=== PATIENT | female | born 1950 | race Caucasian/White ===

== ENCOUNTER 2021-11-07 13:21 | Emergency (ER) | payer MEDICARE, SELFPAY ==
[2021-11-07 13:41] VITALS: BP 123/76; PULSE 74; RESP 18; TEMP 35.6; O2SAT 98; BMI 22.1
--- NOTE | 2021-11-07 14:08 | CRLHL7_ITS ---
For Patients: As a result of the Century Cures Act, medical imaging exams and procedure reports are released immediately into your electronic medical record. You may view this report before your referring provider. If you have questions, please contact your health care provider. INDICATION: Pain COMPARISON: None TECHNIQUE: : CT examination of the chest was performed with the uneventful intravenous administration of 95 cc of Isovue 370 while thin axial sections were obtained from above the apices of the lungs to the lung bases. Please note that all CT scans at this facility use dose modulation, iterative reconstruction, and/or weight-based dosing when appropriate to reduce radiation dose to as low as reasonably achievable. FINDINGS: : HEART and MEDIASTINUM: Heart size normal. No mediastinal or hilar adenopathy or mass. No pericardial effusion. Atherosclerotic vascular calcifications PULMONARY ARTERIAL CIRCULATION: There is no visible intraluminal filling defect to suggest pulmonary embolus. LUNGS: Multiple nodules most of which are ground-glass nodules without solid components. These range in size up to about 8 millimeters. There are few small solid nodules the 1-3 millimeter range. Minimal basilar atelectasis. No focal consolidation. PLEURAL SPACES: There is no pleural effusion, pneumothorax or pleural based mass. VISUALIZED UPPER ABDOMEN: The limited visualized upper abdominal structures appear normal. OSSEOUS STRUCTURES: Age-appropriate appearance. No acute fracture or destructive process. TUBES and LINES: None. IMPRESSION: 1. There is no indication pulmonary embolus. While not timed for the systemic circulation, there is no visible aortic dissection. 2. Multiple bilateral nodules most of which are ground-glass nodules without solid components. There is some solid nodules in the 1-3 millimeter range. These are unlikely to be the cause of the patient`s pain but warrant follow-up. A follow-up noncontrast chest CT is recommended in 6 months. No focal consolidation. No pleural effusion or pneumothorax. Please note that all CT scans at this facility use dose modulation, iterative reconstruction, and/or weight-based dosing when appropriate to reduce radiation dose to as low as reasonably achievable. Dictated by Ryan Goldstein MD @ 11/07/2021 3:43:52 PM (Electronically Signed)
--- NOTE | 2021-11-07 14:11 | ED_ITS ---
HPI - General Adult General Time Seen by Provider: 14:11 Date Seen: 11/07/21 Chief complaint: Chest Pain Stated complaint: From [facility] Time Seen by Provider: 11/07/21 13:25 Source: patient Mode of arrival: ambulatory Limitations: no limitations History of Present Illness HPI narrative: Patient is a 71-year-old female who for 2 days is had some epigastric discomfort that radiates up to her chest to her throat area radiates a little bit into her back. She notices this primarily with eating or after eating. She has had no fever, no vomiting. She does notice in her upper epigastric area subxiphoid area she has significant tenderness to palpation. She has been on a osteoporosis medicine that can cause reflux she had reflux in the past but stopped it due to changing her diet to a vegan diet. She denies anterior chest pain, she denies shortness of breath, she denies fevers, chills, diaphoresis. She feels occasionally nauseated after she eats. No other specific complaints. No leg swelling edema, no fevers as mention, no weight loss Related Data Home Medications Medication Instructions Recorded Confirmed ibandronate 150 mg tablet ea PO 11/07/21 11/07/21 lisinopril 20 mg tablet 20 mg PO QDAY tab 11/07/21 11/07/21 simvastatin 20 mg tablet 20 mg PO QDAY tab 11/07/21 11/07/21 Allergies Allergy/AdvReac Type Severity Reaction Status Date / Time Penicillins Allergy Mild Rash Verified 11/07/21 12:36 Review of Systems Status of ROS: Reports: 10 or more systems reviewed and unremarkable except as noted in History and below PFSH PFS Social History Smoking Status: Never smoker Do you use any of these nicotine containing products: None How often do you have a drink containing alcohol: 2-4 times a month AUDIT-C Alcohol total score: 2 Non-prescribed substance use: denies use Exam Narrative: Exam Narrative: Objective: In general patient is no apparent distress, noncyanotic, alert orient x3 Vital signs unremarkable HEENT is unremarkable no scleral icterus Neck is supple Chest is clear no rales or wheezing Heart rate and rhythm regular without murmur Abdomen benign soft mild subxiphoid tenderness to palpation, no mass, no rebound bowel sounds normoactive Skin exam is unremarkable. Back exam is unremarkable Const: Vital Signs, click to edit/add: Vital Signs - 24 hr 11/07/21 13:41 Temperature 96.1 F L Pulse Rate [Right Pulse Oximeter] 74 Respiratory Rate 18 Blood Pressure [Ri ght Upper Arm] 123/76 Pulse Oximetry 98 Course Vital Signs Vital signs: Initial Vital Signs Temperature 96.1 F L 11/07/21 13:41 Temperature Source Temporal Artery Scan 11/07/21 13:41 Pulse Rate 74 11/07/21 13:41 Respiratory Rate 18 11/07/21 13:41 Blood Pressure 123/76 11/07/21 13:41 Blood Pressure Mean 91 11/07/21 13:41 Blood Pressure Position Sitting 11/07/21 13:41 Pulse Oximetry 98 11/07/21 13:41 Oxygen Delivery Method 11/07/21 13:41 Vital Signs Temperature 96.1 F L 11/07/21 13:41 Pulse Rate 74 11/07/21 13:41 Respiratory Rate 18 11/07/21 13:41 Blood Pressure 123/76 11/07/21 13:41 Pulse Oximetry 98 11/07/21 13:41 Temperature 96.1 F L 11/07/21 13:41 Pulse Rate 74 11/07/21 13:41 Respiratory Rate 18 11/07/21 13:41 Blood Pressure 123/76 11/07/21 13:41 Pulse Oximetry 98 11/07/21 13:41 Medical Decision Making MDM Narrative Medical decision making narrative: The patient has is 2 day history of postprandial pain, subxiphoid pain to palpation, pain radiates somewhat through to her back. Differential be broad including acute coronary syndrome, aortic dissection, peptic ulcer disease, biliary colic. Patient will get the above-mentioned studies I think if we do lab studies and IV fluids and acid suppression medication, that would be ceased a start in the ED. Will give her a GI cocktail. Will look at her laboratory studies and will do a CT scan of the chest for completeness because of her location of pain in the fact that radiates the back. Addendum: Patient's CT of the chest shows no dissection and no PE, there are multiple multiple pulmonary nodules that will need follow-up in 6-[address] scan[address] Jasmin Mcneill is her doctor in in [place], and she will follow up with her in the next 4-5 days. Patient's lab study looks reassuring her EKG by my read shows normal sinus rhythm no acute ST T wave changes. The patient had a GI cocktail incompletely relieve her symptoms, she is given IV Protonix as well. Given her history of reflux her tenderness to palpation or subxiphoid notch. I think she might have esophageal spasm or reflux symptoms occurring, and would recommend Prilosec 20 mg a day for the next couple of weeks, follow-up Ms. Mcneill in the next 4-5 days, return to ED problems or concerns. Her symptoms are completely resolved as mention. Lab Data Labs: Lab Results 11/07/21 11/07/21 11/07/21 Range/Units 14:09 14:15 14:15 WBC 6.72 (4.50-11.00) K/uL RBC 4.20 (4.00-5.20) m/uL Hgb 13.3 (12.0-16.0) gm/dL Hct 38.4 (33.0-51.0) % MCV 91 (80-100) fL MCH 32 (26-34) pg MCHC 35 (32-36) gm/dL RDW Coeff of Graham 11.7 (11.5-15.5) % Plt Count 278 (140-440) K/uL Neut % (Auto) 65.1 (42.0-72.0) % Lymph % (Auto) 20.5 (20-44) % [place] % (Auto) 11.5 H (0.0-11.0) % Eos % (Auto) 2.2 (0.0-7.0) % Baso % (Auto) 0.7 (0.0-3.0) % Neut # (Auto) 4.37 (1.7-7.0) K/uL Lymph # (Auto) 1.38 (0.90-2.90) K/uL [place] # (Auto) 0.80 (0.00-0.90) K/UL Eos # (Auto) 0.15 (0.00-0.50) K/uL Baso # (Auto) 0.05 (0.00-0.30) K/uL Abs Immat Gran (auto) 0.00 (0.00-0.30) K/uL INR 0.97 (0.91-1.10) APTT 33 (23-33) Seconds Sodium (135-149) mmol/L Potassium (3.6-5.1) mmol/L Chloride (96-114) mmol/L Carbon Dioxide (20-32) mmol/L BUN (7-30) mg/dL Creatinine (0.5-1.5) mg/dL Estimated Creat Clear Estimated GFR ml/min Glucose (60-115) mg/dL Calcium (8.4-10.6) mg/dL Total Bilirubin (0.1-1.5) mg/dL Direct Bilirubin (0.0-0.5) mg/dL AST (12-35) U/L ALT (4-35) U/L Alkaline Phosphatase (40-150) U/L C-Reactive Protein (0.5-1.0) mg/dL NT-Pro-B Natriuret Pep (0-125) PG/mL Total Protein (6.0-8.3) g/dL Albumin (3.3-5.0) g/dL Amylase (18-89) U/L POC Troponin I 0.01 (0.01-0.04) ng/ml 11/07/21 11/07/21 Range/Units 14:15 14:15 WBC (4.50-11.00) K/uL RBC (4.00-5.20) m/uL Hgb (12.0-16.0) gm/dL Hct (33.0-51.0) % MCV (80-100) fL MCH (26-34) pg MCHC (32-36) gm/dL RDW Coeff of Graham (11.5-15.5) % Plt Count (140-440) K/uL Neut % (Auto) (42.0-72.0) % Lymph % (Auto) (20-44) % [place] % (Auto) (0.0-11.0) % Eos % (Auto) (0.0-7.0) % Baso % (Auto) (0.0-3.0) % Neut # (Auto) (1.7-7.0) K/uL Lymph # (Auto) (0.90-2.90) K/uL [place] # (Auto) (0.00-0.90) K/UL Eos # (Auto) (0.00-0.50) K/uL Baso # (Auto) (0.00-0.30) K/uL Abs Immat Gran (auto) (0.00-0.30) K/uL INR (0.91-1.10) APTT (23-33) Seconds Sodium 138 (135-149) mmol/L Potassium 4.1 (3.6-5.1) mmol/L Chloride 105 (96-114) mmol/L Carbon Dioxide 26 (20-32) mmol/L BUN 22 (7-30) mg/dL Creatinine 1.3 (0.5-1.5) mg/dL Estimated Creat Clear 31.88 Estimated GFR 43 ml/min Glucose 97 (60-115) mg/dL Calcium 9.5 (8.4-10.6) mg/dL Total Bilirubin 0.5 (0.1-1.5) mg/dL Direct Bilirubin 0.2 (0.0-0.5) mg/dL AST 26 (12-35) U/L ALT 17 (4-35) U/L Alkaline Phosphatase 65 (40-150) U/L C-Reactive Protein < 0.5 L (0.5-1.0) mg/dL NT-Pro-B Natriuret Pep 87 (0-125) PG/mL Total Protein 7.5 (6.0-8.3) g/dL Albumin 4.6 (3.3-5.0) g/dL Amylase 129 H (18-89) U/L POC Troponin I (0.01-0.04) ng/ml Discharge Plan Discharge Clinical Impression: Abdominal pain, Chest pain, Multiple pulmonary nodules Patient Disposition: Home w/ Parent or Adult Condition: Improved Additional Instructions: Light activity, light diet, Prilosec 20 mg daily for the next 2 weeks, follow-up with Ms. Mcneill in the next 3-5 days, avoid aspirin or Advil. Elevate head of bed, no food for 2-3 hours before bedtime. Return to ED as needed. Recommend follow-up pulmonary nodules in the next 6-[address] scanning Activity Level: Light activity Discharge Diet: Low Fat/Low Cholesterol Prescriptions: No Action simvastatin 20 mg tablet 20 mg PO QDAY 0RF lisinopril 20 mg tablet 20 mg PO QDAY 0RF ibandronate 150 mg tablet PO 0RF Label Comments: TAKE 1 TABLET BY MOUTH ONCE EVERY 30 DAYS. Follow Up/Referrals: Josh Mcneill PA-C [Primary Care Provider] - Stand Alone Forms: [email or web address] Info Instructions
[2021-11-07 14:24] LABS: Basophils Absolute Auto 0.05 K/uL (0.00-0.30); Basophils Percent Auto 0.7 % (0.0-3.0); Eosinophils Absolute Auto 0.15 K/uL (0.00-0.50); Eosinophils Percent Auto 2.2 % (0.0-7.0); Hematocrit 38.4 % (33.0-51.0); Hemoglobin* 13.3 gm/dL (12.0-16.0); Lymphocytes Absolute Auto 1.38 K/uL (0.90-2.90); Lymphocytes Percent Auto 20.5 % (20-44); Mean Corpuscular HGB Conc 35 gm/dL (32-36); Mean Corpuscular Hemoglobin 32 pg (26-34); Mean Corpuscular Volume 91 fL (80-100); Monocytes Percent Auto 11.5 % (0.0-11.0); Neutrophils Absolute Auto 4.37 K/uL (1.7-7.0); Neutrophils Percent Auto 65.1 % (42.0-72.0); Platelet Count* 278 K/uL (140-440); RDW Coefficient of Variation % 11.7 % (11.5-15.5); White Blood Count* 6.72 K/uL (4.50-11.00)
[2021-11-07 14:30] VITALS: BP 107/60; PULSE 68; RESP 18; O2SAT 98
[2021-11-07 14:35] LABS: Troponin, Point-of-Care* 0.01 ng/ml (0.01-0.04)
[2021-11-07 14:39] LABS: INR 0.97 (0.91-1.10); Prothrombin Time 13.3 Seconds
[2021-11-07 14:40] LABS: Partial Thromboplastin Time* 33 Seconds (23-33)
[2021-11-07 14:42] LABS: Slide Review Reflex No
[2021-11-07 14:43] LABS: Albumin* 4.6 g/dL (3.3-5.0); Chloride* 105 mmol/L (96-114)
[2021-11-07 14:44] LABS: Potassium* 4.1 mmol/L (3.6-5.1); Sodium* 138 mmol/L (135-149)
[2021-11-07 14:45] LABS: Amylase* 129 U/L (18-89)
[2021-11-07 14:46] LABS: Creatinine* 1.3 mg/dL (0.5-1.5); Est. Creatinine Clearance* 31.88; Estimated Glomerular Filt Rate 43 ml/min
[2021-11-07 14:47] LABS: Alanine Aminotransferase* 17 U/L (4-35); Alkaline Phosphatase* 65 U/L (40-150); Aspartate Amino Transferase* 26 U/L (12-35); Bilirubin Direct* 0.2 mg/dL (0.0-0.5); Bilirubin Total* 0.5 mg/dL (0.1-1.5); Blood Urea Nitrogen* 22 mg/dL (7-30); Calcium* 9.5 mg/dL (8.4-10.6); Carbon Dioxide* 26 mmol/L (20-32); Glucose* 97 mg/dL (60-115); Total Protein* 7.5 g/dL (6.0-8.3)
[2021-11-07 14:51] LABS: C Reactive Protein* < 0.5 mg/dL (0.5-1.0)
[2021-11-07 14:54] LABS: NT Pro B Type NatriureticPept* 87 PG/mL (0-125)
[2021-11-07] MEDS: PANTOPRAZOLE SODIUM 40 MG INJ IVP (14:56)
[2021-11-07] MEDS: 0.9 % SODIUM CHLORIDE 500 ML 500 ML IV (14:56)
[2021-11-07] MEDS: GI COCKTAIL (VISC LIDO/ANTACID) 30 ML PO (14:56)
--- NOTE | 2021-11-07 15:14 | ED.NURSE ---
good relief from GI cocktail
[2021-11-07 15:30] VITALS: BP 180/87; PULSE 65; RESP 18; O2SAT 99
== END 2021-11-07 16:23 | disposition home or self-care (01) ==
PROVIDERS: Emergency Provider Family Medicine; PCP Physician Assistant Medical
DX: R10.13 Epigastric pain (principal); R07.9 Chest pain, unspecified; R91.1 Solitary pulmonary nodule
CPT/HCPCS: 36415; 71260; 80048; 80076; 82150; 83880; 84484; 85025; 85610; 85730; 86140; 93005; 96374; 99285; A9270; C9113; J7120; Q9967

== ENCOUNTER 2021-11-27 11:18 | Outpatient (CLI) | payer MEDICARE, SELFPAY ==
[2021-11-27 13:36] LABS: Cholesterol* 159 mg/dL (90-199)
[2021-11-27 13:37] LABS: HDL Cholesterol* 59 mg/dL (>=50); LDL Cholesterol Calculated 77 mg/dL (<100); Triglycerides* 117 mg/dL (40-149)
== END 2021-11-27 11:19 | disposition home or self-care (01) ==
PROVIDERS: PCP Physician Assistant Medical; Visit Provider Family Medicine
DX: Z00.00 Encounter for general adult medical examination without abnormal findings (principal); E78.5 Hyperlipidemia, unspecified; I10 Essential (primary) hypertension
CPT/HCPCS: 80061

== ENCOUNTER 2021-12-11 14:39 | Outpatient (CLI) | payer MEDICARE, SELFPAY ==
--- NOTE | 2021-12-11 15:00 | CRLHL7_ITS ---
For Patients: As a result of the Century Cures Act, medical imaging exams and procedure reports are released immediately into your electronic medical record. You may view this report before your referring provider. If you have questions, please contact your health care provider. BILATERAL SCREENING MAMMOGRAM WITH COMPUTER-AIDED DETECTION TECHNIQUE: CC and MLO views were obtained. These mammographic images have been obtained using full-field digital technique. These mammographic images were interpreted with the benefit of computer-aided detection. COMPARISON FILM: 08/31/20; 02/25/19; 12/10/17 FINDINGS: The breasts are heterogeneously dense, which may obscure small masses IMPRESSION: There is no radiographic evidence for malignancy. ASSESSMENT: BI-RADS Category 2: Benign RECOMMENDATION: Routine screening mammogram in 1 year. A lay language report of this examination will be provided to the patient. Johan Augustin M.D. Diagnostic/Musculoskeletal Radiologist [email or web address] Transcribed: 2:53 p.m. PT/Dictated by: Johan Augustin MD @ 12/12/2021 9:36:00 AM (Electronically Signed)
== END 2021-12-11 14:40 | disposition home or self-care (01) ==
LOC: MAMMO 14:41
PROVIDERS: PCP Physician Assistant Medical; Visit Provider Family Medicine
DX: Z12.31 Encounter for screening mammogram for malignant neoplasm of breast (principal)
CPT/HCPCS: 77063; 77067

== ENCOUNTER 2022-12-06 08:00 | Outpatient (CLI) | payer MEDICARE, SELFPAY | END 2022-12-06 08:01 | disposition home or self-care (01) | LOC: NFLDREF 12-09 08:50 | PROVIDERS: PCP Physician Assistant Medical; Referring Provider Physician Assistant Medical; Visit Provider Family Medicine | DX: Z00.00 Encounter for general adult medical examination without abnormal findings (principal); E78.5 Hyperlipidemia, unspecified; I10 Essential (primary) hypertension; Z12.39 Encounter for other screening for malignant neoplasm of breast | CPT/HCPCS: 80053; 80061; 82043; 82570 ==

== ENCOUNTER 2022-12-17 07:11 | Outpatient (CLI) | payer MEDICARE, SELFPAY ==
--- NOTE | 2022-12-17 09:57 | W.ANESCHARGE ---
Anesthesia Charges Start Date/Time Anesthesia Start Date: 12/17/22 Anesthesia Start Time: 10:47 Stop Date/Time Anesthesia Stop Date: 12/17/22 Anesthesia Stop Time: 11:19 Summary Extremes of Age - Over 70 or under 1: MDA
--- NOTE | 2022-12-17 11:20 | P.ANES_ITS ---
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
== END 2022-12-17 07:12 | disposition home or self-care (01) ==
PROVIDERS: PCP Family Medicine; Visit Provider Surgery
DX: Z12.11 Encounter for screening for malignant neoplasm of colon (principal); Z86.010 Personal history of colon polyps
CPT/HCPCS: G0105; 00811; 00812; 99100; J2704

== ENCOUNTER 2023-01-07 08:30 | Outpatient (CLI) | payer MEDICARE, SELFPAY | END 2023-01-07 08:31 | disposition home or self-care (01) | LOC: NFLDREF 01-08 08:39 | PROVIDERS: PCP Family Medicine; Referring Provider Family Medicine; Visit Provider Family Medicine | DX: R59.1 Generalized enlarged lymph nodes (principal); I10 Essential (primary) hypertension | CPT/HCPCS: 80069 ==

== ENCOUNTER 2023-01-20 14:08 | Outpatient (CLI) | payer MEDICARE, SELFPAY ==
--- NOTE | 2023-01-20 14:00 | CRLHL7_ITS ---
For Patients: As a result of the Century Cures Act, medical imaging exams and procedure reports are released immediately into your electronic medical record. You may view this report before your referring provider. If you have questions, please contact your health care provider. BILATERAL SCREENING MAMMOGRAM WITH COMPUTER-AIDED DETECTION TECHNIQUE: CC and MLO views were obtained. These mammographic images have been obtained using full-field digital technique. These mammographic images were interpreted with the benefit of computer-aided detection. COMPARISON FILM: 12/11/21, 08/31/20, 02/15/19. FINDINGS: The breasts are heterogeneously dense, which may obscure small masses IMPRESSION: There is no radiographic evidence for malignancy. ASSESSMENT: BI-RADS Category 2: Benign RECOMMENDATION: Routine screening mammogram in 1 year. A lay language report of this examination will be provided to the patient. Victor Manuel Chacko M.D. Diagnostic Radiologist [email or web address] JAYJAY/Dictated by: Victor Manuel Chacko MD @ 01/21/2023 12:13:00 PM (Electronically Signed)
== END 2023-01-20 14:09 | disposition home or self-care (01) ==
LOC: MAMMO 14:10
PROVIDERS: PCP Family Medicine; Visit Provider Family Medicine
DX: Z12.31 Encounter for screening mammogram for malignant neoplasm of breast (principal); R92.2 Inconclusive mammogram
CPT/HCPCS: 77067

== ENCOUNTER 2024-01-22 13:44 | Outpatient (CLI) | payer MEDICARE, SELFPAY ==
--- NOTE | 2024-01-22 14:00 | CRLHL7_ITS ---
For Patients: As a result of the Century Cures Act, medical imaging exams and procedure reports are released immediately into your electronic medical record. You may view this report before your referring provider. If you have questions, please contact your health care provider. DXA BONE MINERAL DENSITY STUDY Current height (in): 64.0. Weight (lb): 127.0. Menopause age: 46. Ethnicity: White. 1. Have you had a previous hip or vertebral fracture? No. 2. Have you had any fractures during your adult life which did not result from significant trauma (e.g., auto accident)? No. 3. Did either of your parents have a hip fracture? No. 4. Do you smoke? No. 5. Have you ever taken Glucocorticoids? No. 6. Do you have rheumatoid arthritis? No. 7. Do you have secondary osteoporosis? No. 8. Do you drink 3 or more alcoholic drinks per day? No. 9. Are you being treated for osteoporosis? Yes. 10. Have you ever taken any of the following medications: Actonel, Evista, Fosamax, Miacalcin, Reclast, Boniva, Forteo, HRT (i.e. estrogen/hormone therapy), Protelos, Prolia, Vitamin D, Calcium, other ??? please specify. ANSWER: Yes, Vitamin D, Calcium. 11. Do you have any of the following medical conditions: Anorexia or bulimia, asthma or emphysema, end stage renal disease, hyperparathyroidism, any seizure disorders, cancer, inflammatory bowel diseases, hysterectomy, other ??? please specify. ANSWER: No. 12. What was your maximum height (inches)? 65. 13. Do you perform weight bearing exercise regularly? No. 14. Do you regularly consume dairy products? Yes. 15. Do you drink caffeinated beverages? No. If female: 16. At what age did your period start? 11. 17. Are you premenopausal? No. 18. How many full term pregnancies have you had? 2. 19. Have you ever missed your period for more than 6 months in a row (not including or menopause)? Not provided. TECHNIQUE: Bone mineral density study was performed using the [facility]. FINDINGS: The results of the study expressed as bone mineral density (BMD) are as follows: Lumbar spine L1 to L4: BMD: 0.827 g/cm2. T-score: -2.0. Z-score: 0.4. Neck Left: BMD: 0.612 g/cm2. T-score: -2.1 . Z-score: -0.0. Right: BMD: 0.657 g/cm2. T-score: -1.7 . Z-score: 0.4. Total Left: BMD: 0.759 g/cm2. T-score: -1.5 . Z-score:0.3. Right: BMD:0.793 g/cm2. T-score: -1.2 . Z-score: 0.6. IMPRESSION: Osteopenia. *Comparison exams done prior to 09/2019 were performed on different unit, [employer]. COMPARISON: Compared with scan of 02/21/2021, the bone mineral density has increased by 14.6 percent at the spine and increased by 2.3 percent at the hip. Compared with scan of 02/15/2019, the bone mineral density has decreased by 7.7 percent at the spine and increased by 4.2 percent at the hip. Victor Manuel Chacko M.D. Diagnostic Radiologist [email or web address] [email or web address]/[email or web address] JR/Dictated by: Victor Manuel Chacko MD @ 01/23/2024 10:10:00 AM (Electronically Signed)
--- NOTE | 2024-01-22 14:40 | CRLHL7_ITS ---
For Patients: As a result of the Century Cures Act, medical imaging exams and procedure reports are released immediately into your electronic medical record. You may view this report before your referring provider. If you have questions, please contact your health care provider. BILATERAL SCREENING MAMMOGRAM WITH COMPUTER-AIDED DETECTION AND TOMOSYNTHESIS TECHNIQUE: CC and MLO views were obtained. These mammographic images have been obtained using full-field digital technique. These mammographic images were interpreted with the benefit of computer-aided detection. Breast Tomosynthesis was used in this interpretation. COMPARISON FILM: 01/20/23, 12/11/21, 08/31/20. FINDINGS: There are scattered areas of fibroglandular density. IMPRESSION: There is no radiographic evidence for malignancy. ASSESSMENT: BI-RADS Category 2: Benign RECOMMENDATION: Routine screening mammogram in 1 year. A lay language report of this examination will be provided to the patient. Victor Manuel Chacko M.D. Diagnostic Radiologist [email or web address] SP/Dictated by: Victor Manuel Chacko MD @ 01/23/2024 9:06:00 AM (Electronically Signed)
== END 2024-01-22 13:45 | disposition home or self-care (01) ==
PROVIDERS: Visit Provider Physician Assistant Medical
DX: Z12.31 Encounter for screening mammogram for malignant neoplasm of breast (principal); M81.0 Age-related osteoporosis without current pathological fracture; M85.89 Other specified disorders of bone density and structure, multiple sites
CPT/HCPCS: 77063; 77067; 77080

== ENCOUNTER 2024-01-26 14:40 | Outpatient (CLI) | payer MEDICARE, SELFPAY | END 2024-01-26 14:41 | disposition home or self-care (01) | PROVIDERS: PCP Physician Assistant Medical; Visit Provider Physician Assistant Medical | DX: I10 Essential (primary) hypertension (principal); E78.5 Hyperlipidemia, unspecified; D64.9 Anemia, unspecified | CPT/HCPCS: 80053; 80061; 84443 ==

== ENCOUNTER 2024-03-02 12:20 | Outpatient (CLI) | payer MEDICARE, SELFPAY | END 2024-03-02 12:21 | disposition home or self-care (01) | LOC: NFLDREF 03-06 03:10 | PROVIDERS: PCP Physician Assistant Medical; Referring Provider Physician Assistant Medical; Visit Provider Internal Medicine Nephrology | DX: N18.30 Chronic kidney disease, stage 3 unspecified (principal) | CPT/HCPCS: 82043; 82570; 87086 ==

== ENCOUNTER 2024-03-09 10:59 | Emergency (ER) | payer MEDICARE, SELFPAY ==
[2024-03-09 11:10] VITALS: BP 172/80; PULSE 78; RESP 20; TEMP 36.6; O2SAT 98; BMI 20.5
--- NOTE | 2024-03-09 11:24 | CRLHL7_ITS ---
For Patients: As a result of the Cures Act, medical imaging exams and procedure reports are released immediately into your electronic medical record. You may view this report before your referring provider. If you have questions, please contact your health care provider. INDICATION: Fall. COMPARISON: None available. TECHNIQUE: Three views of the right wrist. FINDINGS: Impacted fracture of the distal right radius with comminution, intra-articular extension and mild dorsal angulation. Associated soft tissue swelling about the wrist extending to the dorsal aspect of the metacarpals. IMPRESSION: Distal radial fracture as above. Dictated by Carlos Marquez MD @ 03/09/2024 12:17:19 PM (Electronically Signed)
--- NOTE | 2024-03-09 11:24 | CRLHL7_ITS ---
For Patients: As a result of the Cures Act, medical imaging exams and procedure reports are released immediately into your electronic medical record. You may view this report before your referring provider. If you have questions, please contact your health care provider. INDICATION: Fall. COMPARISON: None available. TECHNIQUE: Three views left knee. FINDINGS: Normal mineralization alignment. Patella Judit. No fracture is identified. Medial periarticular soft tissue swelling is suspected on the AP view. Correlation with clinical exam findings is recommended. No joint effusion. IMPRESSION: Suspected medial periarticular soft tissue swelling. No significant joint effusion or fracture. Dictated by Carlos Marquez MD @ 03/09/2024 12:21:08 PM (Electronically Signed)
--- NOTE | 2024-03-09 11:25 | CRLHL7_ITS ---
For Patients: As a result of the Cures Act, medical imaging exams and procedure reports are released immediately into your electronic medical record. You may view this report before your referring provider. If you have questions, please contact your health care provider. INDICATION: Fall. COMPARISON: None available. TECHNIQUE: Three views right hand FINDINGS: Impacted fracture of the distal right radius with comminution, intra-articular extension and mild dorsal angulation. Associated soft tissue swelling about the wrist extending to the dorsal aspect of the metacarpals. No other injury is identified. IMPRESSION: Distal right radial fracture as above. Dictated by Carlos Marquez MD @ 03/09/2024 12:18:37 PM (Electronically Signed)
--- NOTE | 2024-03-09 11:33 | ED_ITS ---
HPI - General Adult General Date Seen: 03/09/24 Chief complaint: Fall/Minor Trauma Stated complaint: Fall. Facial, wrist, knee injuries Time Seen by Provider: 03/09/24 11:05 Source: patient Mode of arrival: ambulatory Limitations: no limitations History of Present Illness HPI narrative: Patient is a 73-year-old woman here with her . They were out walking earlier this morning when she tripped and fell. She scraped her left knee, she does not have a lot of pain there but says it makes a little bit of a clicking sound when she bends it now. She is ambulatory without difficulty. Primary concern is pain in her right wrist and bruising and swelling of her right hand although she says she does not have a lot of pain in the hand. She also hit her right forehead on the ground, she has little bit of scrapes and bruising lateral to the right eye. She denies loss of consciousness. She is not anticoagulated. Denies neck pain, visual changes or facial pain. Related Data Home Medications ?Medication ?Instructions ?Recorded ?Confirmed calcium 200 mg (as 1 tab PO DAILY 11/14/21 03/09/24 citrate)-vitamin D3 6.25 mcg (250 unit) tablet cyanocobalamin (vitamin B-12) 1,000 mcg PO DAILY 11/14/21 03/09/24 1,000 mcg tablet magnesium oxide 400 mg (241.3 mg 400 mg PO DAILY 11/14/21 03/09/24 magnesium) tablet famotidine 40 mg tablet 40 mg PO BID 03/02/24 03/09/24 Previous Rx's ?Medication ?Instructions ?Recorded ibandronate 150 mg tablet 150 mg PO Q30D #3 tabs 02/05/23 lisinopril 20 mg tablet 20 mg PO QDAY #90 tabs 01/26/24 simvastatin 20 mg tablet 20 mg PO QDAY #90 tabs 01/26/24 amlodipine 2.5 mg tablet 2.5 mg PO QHS #90 tabs 01/27/24 Allergies Allergy/AdvReac Type Severity Reaction Status Date / Time Penicillins Allergy Mild Rash Verified 03/09/24 11:14 Review of Systems Status of ROS: Reports: 6 or more systems reviewed and unremarkable except as noted in History and below PFSH PFSH Medical History Lymphadenopathy ?R59.1 - Generalized enlarged lymph nodes (ICD-10) Health care directive on file ?Z78.9 - Other specified health status (ICD-10) Family History Sister Breast cancer Mother Diabetes High blood pressure Myocardial infarction, Onset Age: 61 Family/Other High cholesterol Social History Narrative: Former smoker- quit 30 years ago, smoked for about 20 years What is your current living situation?: I presently have a place to live Problems where you live: pests, such as bugs, ants, or mice In the past 12 months, utilities in danger of being shut off: no In the past 12 mos, have been you worried that your food would run out before you had money to buy more?: never true In the past 12 mos, the food you bought just didn't last and you didn't have money to buy more?: never true Smoking Status: Never smoker Do you use any of these nicotine containing products: None How often do you have a drink containing alcohol: 2-4 times a month AUDIT-C Alcohol total score: 2 Non-prescribed substance use: denies use How often does anyone, including family, friends and others, physically hurt you : never How often does anyone, including family, friends and others, insult or talk down to you: never How often does anyone, including family, friends and others, threaten you with harm: never How often does anyone, including family, friends and others, scream or curse at you: never Health Related Social Needs: Inadequate housing (Z59.1) Exam Narrative: Exam Narrative: Vital signs reviewed In general, alert, well-appearing woman. She seems to have a little memory difficulty, her feels in details for her. Head: Normocephalic. Eyes: Pupils are equal reactive, extraocular movements are full no evidence of entrapment. ENT: She has little bruising and swelling over the right zygoma. There is no obvious bony deformity, no bony tenderness. No nasal or dental trauma. Jaw is nontender. Neck: Nontender to palpation. Heart: Regular rate and rhythm. Abdomen: Nontender. Extremities: Examination of the right upper extremity shows no tenderness or deformity of the shoulder or elbow or forearm. Her wrist looks normal but she has little tenderness to palpation, she has pretty significant bruising and swelling of the dorsum of her right hand although she does not have significant tenderness in this area. She is able to move her fingers. Distal CMS is intact. Radial pulses normal. There is no snuffbox tenderness. The left upper extremity is normal. The left lower extremity is notable for small abrasion on her knee, no effusion, full range of motion nontender to palpation. The right lower extremity is normal. Back: Nontender to palpation. Neurologic: Mild memory difficulties which are chronic. Moves all extremities, answers questions appropriately, speech fluent. Const: Vital Signs, click to edit/add: Vital Signs - 24 hr 03/09/24 11:10 03/09/24 13:07 Temperature 97.8 F Pulse Rate [Right Pulse Oximeter] 78 68 Respiratory Rate 20 16 Blood Pressure [Le ft Forearm] 172/80 H 151/85 H Pulse Oximetry 98 99 Oxygen Delivery Me thod Room Air Room Air Course Course ED Course: X-rays ordered of the right hand, right wrist, right knee. By my review, there is a comminuted intra-articular fracture of the right wrist with minimal angulation. The right hand and left knee do not show evidence of fracture. Radiology reads reviewed, linked below. The right wrist was splinted using Ortho Glass and Federico wraps, a sandwich splint was applied which she tolerated well. She had some Tylenol here, declines need for stronger pain medications at home. We made a follow-up Ortho appointment for her. Sling as needed. Return for severe headache, vomiting altered ment ation or other signs of head injury. Vital Signs Vital signs: Initial Vital Signs Temperature 97.8 F 03/09/24 11:10 Temperature Source Temporal Artery Scan 03/09/24 11:10 Pulse Rate 78 03/09/24 11:10 Respiratory Rate 20 03/09/24 11:10 Blood Pressure 172/80 H 03/09/24 11:10 Blood Pressure Mean 110 H 03/09/24 11:10 Blood Pressure Position Sitting 03/09/24 11:10 Pulse Oximetry 98 03/09/24 11:10 Oxygen Delivery Method Room Air 03/09/24 11:10 Vital Signs Temperature 97.8 F 03/09/24 11:10 Pulse Rate 78 03/09/24 11:10 Respiratory Rate 20 03/09/24 11:10 Blood Pressure 172/80 H 03/09/24 11:10 Pulse Oximetry 98 03/09/24 11:10 Oxygen Delivery Method Room Air 03/09/24 11:10 Temperature 97.8 F 03/09/24 11:10 Pulse Rate 68 03/09/24 13:07 Respiratory Rate 16 03/09/24 13:07 Blood Pressure 151/85 H 03/09/24 13:07 Pulse Oximetry 99 03/09/24 13:07 Oxygen Delivery Method Room Air 03/09/24 13:07 Medications Administered Medications: Discontinued Medications Generic Name Dose Route Start Last Admin Trade Name Erasmo PRN Reason Stop Dose Admin Acetaminophen 1,000 mg 03/09/24 11:55 03/09/24 11:58 Acetaminophen 500 Mg Tablet PO 03/09/24 11:56 1,000 mg ONCE ONE Administration Medical Decision Making Imaging Data X-rays: Attestation: I have reviewed the pertinent imaging results. Radiologist's impression: Patient: Ellen Hilario MR#: [id number] : 1950 Acct:[id number] Loc: ED Service Date: 03/09/[address]: Ordering Physician: Kacie Jeronimo M.D. Date of Service: 03/09/24 Procedure(s): XR hand RT min 3V Accession Number(s): [id number] cc: Kacie Jeronimo M.D.; Josh SIMPSON~ For Patients: As a result of the Cures Act, medical imaging exams and procedure reports are released immediately into your electronic medical record. You may view this report before your referring provider. If you have questions, please contact your health care provider. INDICATION: Fall. COMPARISON: None available. TECHNIQUE: Three views right hand FINDINGS: Impacted fracture of the distal right radius with comminution, intra-articular extension and mild dorsal angulation. Associated soft tissue swelling about the wrist extending to the dorsal aspect of the metacarpals. No other injury is identified. IMPRESSION: Distal right radial fracture as above. Dictated by Carlos Marquez MD @ 03/09/2024 12:18:37 PM Patient: Ellen Hilario MR#: [id number] : 1950 Acct:[id number] Loc: ED Service Date: 03/09/[address]: Ordering Physician: Kacie Jeronimo M.D. Date of Service: 03/09/24 Procedure(s): XR knee LT 3V Accession Number(s): [id number] cc: Kacie Jeronimo M.D.; Josh SIMPSON~ For Patients: As a result of the Cures Act, medical imaging exams and procedure reports are released immediately into your electronic medical record. You may view this report before your referring provider. If you have questions, please contact your health care provider. INDICATION: Fall. COMPARISON: None available. TECHNIQUE: Three views left knee. FINDINGS: Normal mineralization alignment. Patella Judit. No fracture is identified. Medial periarticular soft tissue swelling is suspected on the AP view. Correlation with clinical exam findings is recommended. No joint effusion. IMPRESSION: Suspected medial periarticular soft tissue swelling. No significant joint effusion or fracture. Dictated by Carlos Marquez MD @ 03/09/2024 12:21:08 [place] [address] Diagnostic Imaging Report Patient: Ellen Hilario MR#: [id number] : 1950 Acct:[id number] Loc: ED Service Date: 03/09/[address]: Ordering Physician: Kacie Jeronimo M.D. Date of Service: 03/09/24 Procedure(s): XR wrist RT min 3V Accession Number(s): [id number] cc: Kacie Jeronimo M.D.; Josh SIMPSON For Patients: As a result of the Cures Act, medical imaging exams and procedure reports are released immediately into your electronic medical record. You may view this report before your referring provider. If you have questions, please contact your health care provider. INDICATION: Fall. COMPARISON: None available. TECHNIQUE: Three views of the right wrist. FINDINGS: Impacted fracture of the distal right radius with comminution, intra-articular extension and mild dorsal angulation. Associated soft tissue swelling about the wrist extending to the dorsal aspect of the metacarpals. IMPRESSION: Distal radial fracture as above. Dictated by Carlos Marquez MD @ 03/09/2024 12:17:19 PM [place] [id number] Diagnostic Imaging Report Patient: Ellen Hilario MR#: [id number] : 1950 Acct:[id number] Loc: ED Service Date: 03/09/[address]: Ordering Physician: Kacie Jeronimo M.D. Date of Service: 03/09/24 Procedure(s): XR wrist RT min 3V Accession Number(s): [id number] cc: Kacie Jeronimo M.D.; Josh SIMPSON~ For Patients: As a result of the Cures Act, medical imaging exams and procedure reports are released immediately into your electronic medical record. You may view this report before your referring provider. If you have questions, please contact your health care provider. INDICATION: Fall. COMPARISON: None available. TECHNIQUE: Three views of the right wrist. FINDINGS: Impacted fracture of the distal right radius with comminution, intra-articular extension and mild dorsal angulation. Associated soft tissue swelling about the wrist extending to the dorsal aspect of the metacarpals. IMPRESSION: Distal radial fracture as above. Dictated by Carlos Marquez MD @ 03/09/2024 12:17:19 PM (Electronically Signed) Discharge Plan Discharge Clinical Impression: Fracture of right wrist Patient Disposition: Home, Self-Care Condition: Stable Instructions: Wrist Fracture in Adults (ED) Additional Instructions: Orthopedic follow-up as scheduled. Splint until then. Tylenol 1000 mg 3 times daily. Sling as needed. X-rays of your hand in ER negative today, but if you have ongoing significant symptoms, follow-up with primary care next week. Prescriptions: No Action lisinopril 20 mg tablet 20 mg PO QDAY Qty: 90 3RF simvastatin 20 mg tablet 20 mg PO QDAY Qty: 90 3RF magnesium oxide 400 mg (241.3 mg magnesium) tablet 400 mg PO DAILY calcium citrate-vitamin D3 200 mg-6.25 mcg (250 unit) tablet 1 tab PO DAILY cyanocobalamin (vitamin B-12) 1,000 mcg tablet 1,000 mcg PO DAILY famotidine 40 mg tablet 40 mg PO BID ibandronate 150 mg tablet 150 mg PO Q30D Qty: 3 3RF amlodipine 2.5 mg tablet 2.5 mg PO QHS Qty: 90 0RF Follow Up/Referrals: Josh Mcneill PA-C [Primary Care Provider] - Stand Alone Forms: [employer] Info Instructions
--- OUTSIDE RECORDS SUMMARY | 2024-03-09 11:38 | XMS_ITS | Clinical Summary ---
Author Organization [facility] Address [place], [place] [address] Care Team Providers Care Iron Cutter Name Role Phone [place] Primary Care Provider Unavailable Allergies Active Allergy Reactions Criticality Noted Date Comments Penicillins Rash 12/17/2007 Medications Medication Sig Dispensed Refills Start Date End Date Status aspirin 81 mg tablet Take 1 tablet by mouth once daily with a meal. 0 01/04/2010 Active lisinopril (PRINIVIL; ZESTRIL) 20 mg tablet Take 1 tablet by mouth once daily. 0 01/04/2010 Active simvastatin (ZOCOR) 20 mg tablet Take 20 mg by mouth at bedtime. 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 Social History Tobacco Use Types Packs/Day Years Used Date Smoking Tobacco: Former Smokeless Tobacco: Never Comments:25 years ago Alcohol Use Standard Drinks/Week Comments Yes 0 (1 standard drink = 0.6 oz pur e alcohol) very little Sex and Gender Information Value Date Recorded Sex Assigned at Not on file Gender Identity Not on file Sexual Orientation Not on file Obstetrics History Last Filed Vital Signs Vital Sign Reading Time Taken Comments Blood Pressure 122/68 10/29/2018 4:57 PM CDT Pulse 66 10/29/2018 4:57 PM CDT Temperature 35.6 C (96.1 F) 03/04/2011 8:22 AM 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 Respiratory Rate 16 03/04/2011 10:45 AM 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 Oxygen Saturation 98% 03/04/2011 10:45 AM 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 Inhaled Oxygen Concentration - - Weight 63.5 kg (140 lb) 02/28/2011 2:15 AM 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 Height 160.7 cm (5' 3.25) 02/28/2011 2:15 AM CS T Body Mass Index 24.6 02/28/2011 2:15 AM 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 Plan of Treatment Health Maintenance Due Date Last Done Comments Tdap 07/12/1959 Depression screening for age 12+ 1960 BMI (ht and wt on same day) for age 18+ 1966 Hepatitis C screening for ag e 18-79 1966 Tetanus booster 1968 Colonoscopy through age 75 1993 Lipids for age 45-75 1993 Zoster (shingles) series for age 50+ (1 of 2) 1998 DEXA/DXA scan for age 65+ 2013 Medicare Wellness for age 65+ 2013 Pneumococcal series for age 65+ (1 of 1 - PCV) 2013 RSV vaccine for adults or (1 - 1-dose 75+ series) 07/12/2023 COVID-19 vaccine series ( season) 2023 01/22/2023, 02/19/2022, 02/22/2021, Additional history exists Influenza for age 65+ 12/14/2023 Medical Devices Implanted Type Area Valve Maker Device Identifier Shelf Expiration Date Model / Serial / Lot Log [id number] - Deanna [id number] Lens Iol - 1 - Lens Iol 22.5 Wf [id number] Implanted:Qty: 1 on 12/03/2010 at [facility] Left: Eye [employer] [id number]. [id number]# / [id number] / Lens Iol 22.0 Wf [id number]. [id number] - [id number] Implanted:Qty: 1 on 03/04/2011 at [facility] Right: Eye [employer] 08/03/2015 [id number]. 0# / [id number] / Advance Directives * Full Code (Latest Code Status on File) Date Activated Date Inactivated Comments 03/04/2011 8:17 AM 03/04/2011 12:52 PM * Full Code Date Activated Date Inactivated Comments 12/03/2010 8:47 AM 12/03/2010 1:13 PM Care Teams Iron Cutter Relationship Specialty Start Date End Date Formerly [facility] PCP - General 11/22/16
[2024-03-09] MEDS: ACETAMINOPHEN 500 MG TABLET 1000 MG PO (11:58)
[2024-03-09 13:07] VITALS: BP 151/85; PULSE 68; RESP 16; O2SAT 99
== END 2024-03-09 13:15 | disposition home or self-care (01) ==
PROVIDERS: Emergency Provider Emergency Medicine; PCP Physician Assistant Medical
DX: S62.101A Fracture of unspecified carpal bone, right wrist, initial encounter for closed fracture (principal); S80.212A Abrasion, left knee, initial encounter; W01.0XXA Fall on same level from slipping, tripping and stumbling without subsequent striking against object, initial encounter; Y93.01 Activity, walking, marching and hiking
CPT/HCPCS: 73110; 73130; 73562; 99284; A9270

== ENCOUNTER 2024-03-10 21:29 | Emergency (ER) | payer MEDICARE, SELFPAY ==
[2024-03-10 21:32] VITALS: BP 166/82; PULSE 76; RESP 18; TEMP 35.9; O2SAT 98; BMI 20.3
--- NOTE | 2024-03-10 21:42 | ED_ITS ---
HPI - General Adult General Chief complaint: Extremity Pain/Injury, Upper Stated complaint: right wrist broken/swollen fingers now Time Seen by Provider: 03/10/24 21:31 History of Present Illness HPI narrative: pt states she has swelling in her fingers with discoloration to her thumb. Pt h as sensation and being numb to her thumb. Pt has a splint on right wrist from previous fall with known fracture. 73-year-old woman presenting to the emergency department with concern of numbness in her thumb and discoloration as well. Is having more swelling in her fingers as well. Uncomfortable to painful. Seen yesterday in this department and received a sandwich splint for wrist fracture. noting that has limited mobility in hand wondering if this splint could be modified somewhat. Due to timing of travel and availability in clinic will not be scheduled for a follow-up until about a couple weeks of from injury Related Data Home Medications ?Medication ?Instructions ?Recorded ?Confirmed calcium 200 mg (as 1 tab PO DAILY 11/14/21 03/09/24 citrate)-vitamin D3 6.25 mcg (250 unit) tablet cyanocobalamin (vitamin B-12) 1,000 mcg PO DAILY 11/14/21 03/09/24 1,000 mcg tablet magnesium oxide 400 mg (241.3 mg 400 mg PO DAILY 11/14/21 03/09/24 magnesium) tablet famotidine 40 mg tablet 40 mg PO BID 03/02/24 03/09/24 Previous Rx's ?Medication ?Instructions ?Recorded ibandronate 150 mg tablet 150 mg PO Q30D #3 tabs 02/05/23 lisinopril 20 mg tablet 20 mg PO QDAY #90 tabs 01/26/24 simvastatin 20 mg tablet 20 mg PO QDAY #90 tabs 01/26/24 amlodipine 2.5 mg tablet 2.5 mg PO QHS #90 tabs 01/27/24 Allergies Allergy/AdvReac Type Severity Reaction Status Date / Time Penicillins Allergy Mild Rash Verified 03/09/24 11:14 Review of Systems Status of ROS: Reports: 6 or more systems reviewed and unremarkable except as noted in History and below PFSH PFS Medical History Lymphadenopathy ?R59.1 - Generalized enlarged lymph nodes (ICD-10) Health care directive on file ?Z78.9 - Other specified health status (ICD-10) Family History Sister Breast cancer Mother Diabetes High blood pressure Myocardial infarction, Onset Age: 63 Family/Other High cholesterol Social History Narrative: Former smoker- quit 30 years ago, smoked for about 20 years What is your current living situation?: I presently have a place to live Problems where you live: pests, such as bugs, ants, or mice In the past 12 months, utilities in danger of being shut off: no In the past 12 mos, have been you worried that your food would run out before you had money to buy more?: never true In the past 12 mos, the food you bought just didn't last and you didn't have money to buy more?: never true Smoking Status: Never smoker Do you use any of these nicotine containing products: None How often do you have a drink containing alcohol: 2-4 times a month AUDIT-C Alcohol total score: 2 Non-prescribed substance use: denies use How often does anyone, including family, friends and others, physically hurt you : never How often does anyone, including family, friends and others, insult or talk down to you: never How often does anyone, including family, friends and others, threaten you with harm: never How often does anyone, including family, friends and others, scream or curse at you: never Health Related Social Needs: Inadequate housing (Z59.1) Exam Narrative: Exam Narrative: Pleasant. NAD. Favoring her right arm which is in a splint. There is some b ruising discoloration of the thumb. Subjective altered sensation distally. Generally mild swelling of the fingers. Warm. Const: Vital Signs, click to edit/add: Vital Signs - 24 hr 03/10/24 21:32 Temperature 96.7 F L Pulse Rate [Left P ulse Oximeter] 76 Respiratory Rate 18 Blood Pressure [Le ft Upper Arm] 166/82 H Pulse Oximetry 98 Oxygen Delivery Me thod Room Air Documenting provider has reviewed patient's vital signs: yes Course Vital Signs Vital signs: Initial Vital Signs Temperature 96.7 F L 03/10/24 21:32 Temperature Source Temporal Artery Scan 03/10/24 21:32 Pulse Rate 76 03/10/24 21:32 Pulse Rhythm Regular 03/10/24 21:32 Respiratory Rate 18 03/10/24 21:32 Blood Pressure 166/82 H 03/10/24 21:32 Blood Pressure Mean 110 H 03/10/24 21:32 Blood Pressure Position Sitting 03/10/24 21:32 Pulse Oximetry 98 03/10/24 21:32 Oxygen Delivery Method Room Air 03/10/24 21:32 Vital Signs Temperature 96.7 F L 03/10/24 21:32 Pulse Rate 76 03/10/24 21:32 Respiratory Rate 18 03/10/24 21:32 Blood Pressure 166/82 H 03/10/24 21:32 Pulse Oximetry 98 03/10/24 21:32 Oxygen Delivery Method Room Air 03/10/24 21:32 Temperature 96.7 F L 03/10/24 21:32 Pulse Rate 76 03/10/24 21:32 Respiratory Rate 18 03/10/24 21:32 Blood Pressure 166/82 H 03/10/24 21:32 Pulse Oximetry 98 03/10/24 21:32 Oxygen Delivery Method Room Air 03/10/24 21:32 Medical Decision Making MDM Narrative Medical decision making narrative: I did review imaging and cares that were done yesterday. Primary finding was impacted fracture of distal radius with some comminution. Mild dorsal angulation. Did not require reduction. I suspect primarily concerns are related to snug splint. Pain is not out of control otherwise. Does not look to be an inherently unstable fracture. I did remove the splint. No unexpected or unusual swelling. Let rest in emergency department to reassess symptoms. Progressed through tingling and then to recovery of more normal sensation. also expressing concern of needing more mobility in her hand. I think we can shorten the splint particularly on the palmar side to allow for this. Returned with Ortho Glass to re-splint. Appears more comfortable. Discussed that can loosen splint overwrapped if needed. I think the end of the week might be too soon to cast given swelling but can certainly show up in see if that can be done. See patient discharge plan for further discussion Reconsidering, Friday seems little early to put on the cast. Friday would work but would probably be rather difficult to get an appointment and might not work with your schedule from what you are saying. At this point I think I would just follow up as scheduled for casting. Medical Records Medical records reviewed: Yes I reviewed the patient's medical records Discharge Plan Discharge Clinical Impression: Cast discomfort Patient Disposition: Home w/ Parent or Adult Condition: Improved Additional Instructions: Reconsidering, Friday seems little early to put on the cast. Friday would work but would probably be rather difficult to get an appointment and might not work with your schedule from what you are saying. At this point I think I would just follow up as scheduled for casting. Prescriptions: No Action lisinopril 20 mg tablet 20 mg PO QDAY Qty: 90 3RF simvastatin 20 mg tablet 20 mg PO QDAY Qty: 90 3RF magnesium oxide 400 mg (241.3 mg magnesium) tablet 400 mg PO DAILY calcium citrate-vitamin D3 200 mg-6.25 mcg (250 unit) tablet 1 tab PO DAILY cyanocobalamin (vitamin B-12) 1,000 mcg tablet 1,000 mcg PO DAILY famotidine 40 mg tablet 40 mg PO BID ibandronate 150 mg tablet 150 mg PO Q30D Qty: 3 3RF amlodipine 2.5 mg tablet 2.5 mg PO QHS Qty: 90 0RF Follow Up/Referrals: Josh Mcneill, PALindaC [Primary Care Provider] - Stand Alone Forms: [employer] Info Instructions
--- OUTSIDE RECORDS SUMMARY | 2024-03-10 21:57 | XMS_ITS | Clinical Summary ---
Author Organization [employer] [facility] Address [place], [place] [address] Care Team Providers Care Cardiac Surgeon Name Role Phone Rupert, [facility] Primary Care Provider Unavailable Allergies [...] 35.6 C (96.1 F) 03/04/2011 8:22 AM [employer] Respiratory Rate 16 03/04/2011 10:45 AM [employer] Oxygen Saturation 98% 03/04/2011 10:45 AM [employer] Inhaled Oxygen Concentration - - Weight 63.5 kg (140 lb) 02/28/2011 2:15 AM [employer] Height 160.7 cm (5' 3.25) 02/28/2011 2:15 AM CS T Body Mass Index 24.6 02/28/2011 2:15 AM [employer] Plan of Treatment Health Maintenance Due Date [...] 65+ 12/14/2023 Medical Devices Implanted Type Area Obstetrical Anesthesiologist Device Identifier Shelf Expiration Date Model / Serial / Lot Log [id number] - Deanna [id number] Lens Iol - 1 - Lens Iol 22.5 Wf [id number]. 5 Implanted:Qty: 1 on 12/03/2010 at [facility] Left: Eye [employer] [id number]. [id number]# / [id number] / Lens Iol 22.0 Wf [id number]. 0 - [id number] Implanted:Qty: 1 on 03/04/2011 at [facility] Right: Eye [employer] 08/03/2015 [id number]. 0# / [id number] / Advance Directives * Full Code (Latest Code Status on File) Date Activated Date Inactivated Comments 03/04/2011 8:17 AM 03/04/2011 12:52 PM * Full Code Date Activated Date Inactivated Comments 12/03/2010 8:47 AM 12/03/2010 1:13 PM Care Teams Cardiac Surgeon Relationship Specialty Start Date End Date [facility] PCP - General 11/22/16
== END 2024-03-10 22:41 | disposition home or self-care (01) ==
PROVIDERS: Emergency Provider Family Medicine; PCP Physician Assistant Medical
DX: Z46.89 Encounter for fitting and adjustment of other specified devices (principal)
CPT/HCPCS: 99282; 99283; 99284

== ENCOUNTER 2024-03-24 09:50 | Outpatient (CLI) | payer MEDICARE, SELFPAY | END 2024-03-24 09:51 | disposition home or self-care (01) | LOC: NFLDREF 03-25 12:49 | PROVIDERS: PCP Physician Assistant Medical; Visit Provider Physician Assistant Medical | DX: I10 Essential (primary) hypertension (principal); E78.2 Mixed hyperlipidemia; N18.4 Chronic kidney disease, stage 4 (severe); M81.0 Age-related osteoporosis without current pathological fracture; R26.89 Other abnormalities of gait and mobility; K21.9 Gastro-esophageal reflux disease without esophagitis; I12.9 Hypertensive chronic kidney disease with stage 1 through stage 4 chronic kidney disease, or unspecified chronic kidney disease; R41.89 Other symptoms and signs involving cognitive functions and awareness; Z87.81 Personal history of (healed) traumatic fracture; R82.90 Unspecified abnormal findings in urine | CPT/HCPCS: 80069; 82043; 82306; 82570; 82728; 83540; 83550; 87086 ==

== ENCOUNTER 2024-03-26 10:28 | Outpatient (CLI) | payer MEDICARE, SELFPAY ==
--- NOTE | 2024-03-26 10:45 | CRLHL7_ITS ---
For Patients: As a result of the Century Cures Act, medical imaging exams and procedure reports are released immediately into your electronic medical record. You may view this report before your referring provider. If you have questions, please contact your health care provider. INDICATION: Chronic kidney disease, stage 3 TECHNIQUE: Grayscale, color Doppler and power Doppler ultrasound of the kidneys and renal arteries performed. COMPARISON: None available FINDINGS: BILATERAL RENAL ARTERY DUPLEX ULTRASOUND ABDOMINAL AORTA: Peak systolic velocity = 63 cm/s. No aortic aneurysm. RIGHT KIDNEY: 8.7 cm in length. There is no hydronephrosis. Renal cortex measures 8 millimeters. Peak systolic velocity = 126 cm/second Renal artery to aortic peak systolic velocity ratio = 2.0 Resistive indices: 0.76 Renal vein = patent LEFT KIDNEY: 8.1 cm in length. There is no hydronephrosis. Renal cortex measures 1.2 cm. Peak systolic velocity = 175 cm/second Renal artery to aortic peak systolic velocity ratio = 2.8 Resistive indices: 0.8 Renal vein = patent Incidental simple cyst left kidney measures 9 x 9 x 9 millimeters. IMPRESSION: No evidence of significant renal artery stenosis. Dictated by Victor Manuel Chacko MD @ 03/26/2024 12:31:30 PM (Electronically Signed)
== END 2024-03-26 10:29 | disposition home or self-care (01) ==
LOC: US 10:29
PROVIDERS: PCP Physician Assistant Medical; Visit Provider Internal Medicine Nephrology
DX: N18.30 Chronic kidney disease, stage 3 unspecified (principal); N28.1 Cyst of kidney, acquired; I12.9 Hypertensive chronic kidney disease with stage 1 through stage 4 chronic kidney disease, or unspecified chronic kidney disease
CPT/HCPCS: 76775; 93975

== ENCOUNTER 2024-05-04 14:22 | Outpatient (CLI) | payer MEDICARE, SELFPAY | END 2024-05-04 14:23 | disposition home or self-care (01) | LOC: NFLDREF 05-05 01:41 | PROVIDERS: PCP Physician Assistant Medical; Referring Provider Physician Assistant Medical; Visit Provider Physician Assistant Medical | DX: R41.89 Other symptoms and signs involving cognitive functions and awareness (principal); N18.4 Chronic kidney disease, stage 4 (severe); R82.90 Unspecified abnormal findings in urine; Z13.220 Encounter for screening for lipoid disorders; Z13.29 Encounter for screening for other suspected endocrine disorder | CPT/HCPCS: 82607; 82728; 84443; 87086 ==

== ENCOUNTER 2024-05-06 11:15 | Outpatient (RCR) | payer MEDICARE, SELFPAY ==
--- NOTE | 2024-04-19 12:51 | OT.OPOE ---
OT Outpatient Ortho Eval OT Outpatient Ortho Eval* Start: 04/19/24 11:07 Freq: Status: Active Protocol: Document 04/19/24 11:07 LOLAAmber (Rec: 04/19/24 12:47 QUITA [id number]) E-signed By Carey Choi, OTR/L, CLT OT OP Ortho Eval Details Complexity Complexity Low Insurance Information Insurance Information Medicare B Other Insurance Medicare Advantage Plan PPO Outpatient History/Precautions Current Condition/Medical Diagnosis Referring Provider Dr. Ramakrishna Larose Medical Diagnoses S62.101A Fracture of unspecified carpal bone, right wrist Treatment Diagnosis Stiffness in R hand (wrist) M25.631 Pain in R hand (wrist) M25. 531 Date of Onset DOI: 03/09/2024, s/p fall on outstretched hand Other Precautions Patient has a healing 3 part intra-articular, minimally displaced right upper extremity distal radius fracture. She was placed in a new short-arm, waterproof cast which was removed at office f /u visit 04/19/24. DOI: 2023, s/p fall on outstretched hand 04/19/24: Provider wants patient to wear the brace for the next 2-6 weeks. 05/31/24 at 10am patient will go back to Ortho for final check to assess her progress (6 weeks). Other Conditions Osteoporosis (Acute) M81.0 Lymphadenopathy (Acute) R59.1 Hypertension (Acute 10/12/12) I10 Hyperlipidemia (Acute 10/12/12 ) E78.5 Abdominal pain (Acute) R10.9 Chest pain (Acute) R07.9 Multiple pulmonary nodules ( Acute) R91.8 Medical/Functional History Medical History Reviewed Yes Prior Level of Function/Mobility Patient comes to this session with Victor Manuel (her spouse) she states that he does all the driving. Patient refers to her spouse often when asked questions (no documented Dementia or Cognitive impairment noted in chart). Patient was also referred to PT after her fall, she was seen for a PT Eval on 04/15/24 with next session on 04/22/24 . Patient states that she doesn't do much just normal household tasks like cooking, cleaning and laundry. 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 She was seen in the emergency department with x-rays showing a distal radius fracture. She was placed in a splint and asked to follow-up. She has never injured this wrist or had surgery on it previously. She is right-hand dominant. Patient than had short arm cast placed on the R hand/ wrist which was removed this morning at Ortho f/u apt and replaced with a pre-jacob removable splint. Pain Assessment Pain Pain Yes Pain Comments 1/10 at rest 4-5/10 with activity Goniometric Comments Goniometric Comments Goniometric Comments R dominant hand/wrist extension/flexion 30/30 degrees (L hand is WNL) R dominant hand supination 65 degrees (L hand was 84 degrees ) OT Problems Problems Problems Decreased Strength,Decreased Range of Motion,Decreased Dexterity,Pain,Decreased Coordination,Lifting,Gripping, Pinching Other Problems Writing,Opening Containers, Dressing,Fasteners,Sleeping Patient Potential Excellent Assessment Assessment Assessment 73 year old female reports falling on her outstretched hand on 03/09/2024. She was seen in the emergency department with x-rays showing a distal radius fracture. She was placed in a splint and asked to follow-up. She has never injured this wrist or had surgery on it previously. She is right-hand dominant. Patient than had short arm cast placed on the R hand/ wrist which was removed this morning at Ortho f/u apt and replaced with a pre-jacob removable splint. Therapist removed this, taught patient and spouse how to properly laquita/doff, washed the skin which was dry and flakey, moisturized the R hand/wrist/ forearm and donned a clean piece of Tetra editing computer publisher with cut out for the thumb. Therapist issued size D Tetra Return To Factory Clerk sleeves for the R wrist to be worn underneath the wrist brace (2 extra sets so that patient/spouse can wash) and always have a fresh set to be worn daily. Mild swelling noted at the R wrist crease, no swelling at any of the R hand digits, finger motion is excellent, wrist flexion/ extension, radial and ulnar deviation is limited. R arm supination is lacking with pain past 55 degrees. Patient will make excellent progress with skilled therapy Occupational Therapy Treatment Plan - OP Potential Rehabilitation Potential Excellent Set Goals Goals Set with Patient Yes Goals Goals 1. Patient will have a reduction of swelling of the R (dominant) hand/wrist from 15 .5 cm's circumference to less than 15 cm's around the wrist crease (L hand measured at 14. 4 cm's). 2. (Return To Factory Clerk strength not formally tested at date of EVAL)- Patient's R dominant hand will be within 20lbs of her L non dominant hand editing computer publisher strength 3. Patient will advance her R dominant hand/wrist extension/ flexion from 30/30 degrees to >45/45 degrees 4. Patient will advance her R dominant hand supination from 65 degrees to >75 degrees (L non effected side was 84 degrees) Target Date 8 weeks Treatment Plan Treatment Plan Evaluation,Edema Control,Joint Mobilization,Manual Therapy, Ultrasound,Therapeutic Exercise,Therapeutic Activities,Self Care/Home Management,Education Expected Frequency 1-2x Week Expected Duration 8-10 Weeks Comment Summary Therapist issued size D Tetra Return To Factory Clerk sleeves for the R wrist to be worn underneath the wrist brace (2 extra sets so that patient/spouse can wash) and always have a fresh set to be worn daily. Home Program Home Program Home Program Initiated Home Program Specifics Access Code: [email or web address] URL: [email or web address] Date: 04/19/2024 Prepared by: Carey Choi Exercises - Wrist Prayer Stretch - 1 x daily - 7 x weekly - 3 sets - 10 reps - Wrist Tendon Gliding - 1 x daily - 7 x weekly - 3 sets - 10 reps - Finger Spreading - 1 x daily - 7 x weekly - 3 sets - 10 reps - Wrist AROM Radial Ulnar Deviation - 1 x daily - 7 x weekly - 3 sets - 10 reps - Wrist AAROM Flexion and Extension - 1 x daily - 7 x weekly - 3 sets - 10 reps - Forearm AAROM Supination and Pronation with Ball - 1 x daily - 7 x weekly - 3 sets - 10 reps - Putty Squeezes - 1 x daily - 7 x weekly - 3 sets - 10 reps Certification Certification Statement I Certify That: Therapy Services Provided, Therapy Plan Established, Therapy Plan Reviewed Certification Information Clinic ID # [id number] Initial Certification Date 04/19/24 Recertification Due Date 07/18/24 Provider Signature Required Yes Provider Signature Shows Agreement With POC & Medical Necessity Physician NPI Number Write NPI# Here Physician Comment/Change Comment or Changes Physician Signature & Date Requested Please Sign/Date Here
== END 2024-07-22 09:31 | disposition home or self-care (01) ==
PROVIDERS: PCP Physician Assistant Medical; Visit Provider Orthopaedic Surgery
DX: S62.101A Fracture of unspecified carpal bone, right wrist, initial encounter for closed fracture (principal); Z51.89 Encounter for other specified aftercare
CPT/HCPCS: 97110; 97140; 97165; X5282

== ENCOUNTER 2024-05-07 09:00 | Outpatient (RCR) | payer MEDICARE, SELFPAY ==
--- NOTE | 2024-05-06 09:35 | PT.OPE ---
PT [facility] Outpatient Eval PT [facility] Outpatient Eval Start: 04/15/24 12:26 Freq: Status: Active Protocol: Document 04/15/24 12:56 BMS (Rec: 04/15/24 12:59 BMS [id number]) E-signed By Simona Christian PT Physical Therapy Outpatient Evaluation Insurance Information Recert Due Date 07/13/24 Insurance Information/Comments Blue Medicare PPO Medical Diagnosis abnormality of gait due to impairment of balance R 26.89 Treating Diagnosis abnormal gait R26.89 unsteadiness R 26.81 Referring MD Josh Mcneill PA-C [phone] Subjective Preferred Name Zarina Subjective fell 03/09 [address] outside on sidewalk, said I was rushing. doctor said my feet shuffle and I guess I notice that more lately. Current Work Status Retired Precautions Treatment Precautions/Contraindications cognitive impair, hx of falls, most recent late Nov resulting in fx wrist. Victor Manuel assists w subjective in part Objective Range of Motion B shoulders, elbows, neck, knees ankles WNL. R wrist restricted by cast Strength MMT seated B LE all major groups 5/5. Balance & Gait amb without gait aid, with anterior center of gravity and head forward, some rounding of thoracic. initial contact foot flat B result in shuffle pattern. Path deviation minimal. Turn however total LOB requiring therapist assist or wall for recovery of balance, does occur with turn in either direction. unable to achieve tandem balance without guarding for balance, unable to SLS. NBOS EO and EC with appropriate torso corrections. Unable to tandem stance EC. Functional Test Performed & Score TUG 19 sec 5x STS = 17 sec amb 145' in 45 sec Assessment Assessment/Impression Patient is very pleasant 73 yo referred to physical therapy s/p fall while walking outside 03/09/24. She did unfortunately break right wrist (dominant arm) and is currently casted, states this is to be revisited next week at ortho. She also struck head and R knee, both of which appear to be healed per patient and Victor Manuel who accompanies her and assists somewhat with subjective as patient does have some memory loss in general not specific to the event. Her subjective is a bit convoluted and not always answering the question as asked so some lack of clarity. States she has been told that she is shuffling feet more with walking and feels this may have been what tripped her the day of her fall. She does not use any gait aid, though does have walking sticks she only uses those for hiking. Gait does demo shuffle with foot flat initial contact and some anterior translation of center of gravity is failry steady with straight path. When she turn however does completely lose balance requiring wall or therapist assist to recover balance. This does occur turns both direction and even at slower speed though worse when rapid. She has hx of osteoporosis and HTN but denies dizziness. see above for objective findings. Patient and would like to keep session count low, was issued home ex program for balance challenges and modifications for safety, as above and request followup in 1-2 weeks after she has had a chance to try them out. If able to perform easily will advance, or modify prn. Patient is appropriate for skilled physical therapy to address gait abnormality, balance and activity training to reduce risk of further injurious falls. She and agree to plan, may see up to 10 visits for skilled physical therapy if needed as ability to perform HEP will be limited by cognition and balance challenges. Home: 3 steps to landing, then threshold step to mainfloor with needs on this floor. Basement is 1 flight (all with rails) but is not mandatory she ascend/descend these. They state is 110 year old house so stairs reflect that. Other home modification/equip questions were not successfully answered and may be revisited. Plan of Care Rehabilitation Potential Good Rehabilitation Potential Comments cognitive challenges, memory loss. Physical Therapy Goals 1 Patient demo modified independence with assist by prn for balance ex and functional strength. 2 Patient report no falls in 4 -6 week period 3 Patient demo improved foot clearance and confidence with gait using least restrictive or no gait aid for safety. 4 Pt demo ability to ascend/ descend flight of stairs for access to basement with use of unilateral rail 5 Pt demo ability to perform sit to stand without pressing calves into chair for balance. Coordination/Communication With Referral Source Treatment Plan/Direct Interventions Gait Training,Manual Therapy, Neuromuscular Re-ed,Self-Care/ Home Management,Therapeutic Activities,Therapeutic Exercises Frequency/Duration 1-2x/ week up to 10 visits Patient Will Be Discharged From Therapy Completion of LTG(s),Skills Plateau,Independent w/HEP, Independently Progressing Evaluation Billing Untimed Code Treatment Minutes 40 Complexity Low Certification Information Initial Certification Date 04/15/24 Ending Certification Date 07/13/24 Provider Signature Required Yes Provider Signature Shows Agreement With POC & Medical Necessity Physician NPI Number Write NPI# Here Physician Comment/Change : Physician Signature & Date Requested Please Sign/Date Here
== END 2024-09-04 23:59 | disposition home or self-care (01) ==
PROVIDERS: PCP Physician Assistant Medical; Visit Provider Physician Assistant Medical
DX: R26.89 Other abnormalities of gait and mobility (principal); Z51.89 Encounter for other specified aftercare
CPT/HCPCS: 97110; 97112; 97116; 97161

== ENCOUNTER 2025-02-11 14:39 | Outpatient (CLI) | payer MEDICARE, SELFPAY ==
--- NOTE | 2025-02-11 15:00 | CRLHL7_ITS ---
For Patients: As a result of the Century Cures Act, medical imaging exams and procedure reports are released immediately into your electronic medical record. You may view this report before your referring provider. If you have questions, please contact your health care provider. INDICATION: BILATERAL SCREENING MAMMOGRAM, ASYMPTOMATIC 74 Y/O FEMALE COMPARISON: 01/22/2024, 01/20/2023, 12/11/2021 TECHNIQUE: Digital mammogram in CC and MLO projections including computer-aided detection (CAD) and tomosynthesis. BREAST COMPOSITION: The breasts are heterogeneously dense, which may obscure small masses. FINDINGS: No suspicious findings. ASSESSMENT: BI-RADS 2 Benign RECOMMENDATION: Annual screening mammogram. A lay language report of this examination will be provided to the patient. Dictated by: Victor Manuel Chacko MD @ 02/14/2025 09:50:22 (Electronically Signed)
== END 2025-02-11 14:40 | disposition home or self-care (01) ==
LOC: MAMMO 14:40
PROVIDERS: PCP Physician Assistant Medical; Visit Provider Physician Assistant Medical
DX: Z12.31 Encounter for screening mammogram for malignant neoplasm of breast (principal); R92.333 Mammographic heterogeneous density, bilateral breasts
CPT/HCPCS: 77063; 77067

== ENCOUNTER 2025-03-21 09:11 | Outpatient (CLI) | payer MEDICARE, SELFPAY | END 2025-03-21 09:12 | disposition home or self-care (01) | PROVIDERS: PCP Physician Assistant Medical; Referring Provider Physician Assistant Medical; Visit Provider Physician Assistant Medical | DX: R79.89 Other specified abnormal findings of blood chemistry (principal); Z13.6 Encounter for screening for cardiovascular disorders; Z13.9 Encounter for screening, unspecified | CPT/HCPCS: 80053; 80061; 82306; 84443 ==